=== PATIENT | female | born 1960 | race Caucasian/White ===

== ENCOUNTER 2016-05-10 21:24 | Emergency (ER) | payer OTHER ==
[2016-05-10] MEDS ORDERED: HYDROCODONE/ACETAMINOPHEN 5/325MG TABLET ONE (21:41)
--- NOTE | 2016-05-11 08:07 | RAD ---
Exam: Three-view left finger COMPARISON: None INDICATION: Fall, postreduction middle finger. FINDINGS: PA, lateral and oblique views of the left third finger were obtained. Soft tissue swelling is present about the PIP joint. Overall normal bone mineralization. Alignment is normal. No acute displaced fracture is identified. IMPRESSION: No acute displaced fracture in the left third finger postreduction. Soft tissue swelling is noted about the PIP joint.
== END 2016-05-10 22:28 | disposition home or self-care (01) ==
LOC: ED 21:24
DX: S63.283A Dislocation of proximal interphalangeal joint of left middle finger, initial encounter (principal); W18.30XA Fall on same level, unspecified, initial encounter; Y92.008 Other place in unspecified non-institutional (private) residence as the place of occurrence of the external cause
CPT/HCPCS: 73140; 99283 ×2; 29130; A9270